=== PATIENT | male | born 1950 | race African-American/Black ===

== ENCOUNTER 2016-08-19 16:52 | Emergency (ER) | payer MEDICARE, MEDICAID ==
[~2016-08-19] VITALS: Ht 175.3 cm; Wt 80.0 kg
[~2016-08-19 16:52] MED LIST: BUDE6HFA IH; CARV3.1242 PO; DEXL60CA3 PO; FURO20TA4 PO; GABA-531 PO; HYDR-3933 PO; VIAMIN PO
[2016-08-19] MEDS ORDERED: MORPHINE SULFATE 10 MG/ML CPJ IM ONE (18:45)
[2016-08-19 18:59] VITALS: BP 132/93
== END 2016-08-19 23:15 | disposition home or self-care (01) ==
LOC: ER 17:18
DX: S20.219A Contusion of unspecified front wall of thorax, initial encounter (principal); S40.012A Contusion of left shoulder, initial encounter; S40.011A Contusion of right shoulder, initial encounter; M54.5 Low back pain; M25.561 Pain in right knee; M54.2 Cervicalgia; M25.551 Pain in right hip; M25.552 Pain in left hip; R51 Headache; J45.909 Unspecified asthma, uncomplicated; I10 Essential (primary) hypertension; F12.10 Cannabis abuse, uncomplicated; Z79.899 Other long term (current) drug therapy; Z88.0 Allergy status to penicillin; Z88.5 Allergy status to narcotic agent; V49.9XXA Car occupant (driver) (passenger) injured in unspecified traffic accident, initial encounter; Y93.89 Activity, other specified; Y99.8 Other external cause status; Y92.89 Other specified places as the place of occurrence of the external cause
CPT/HCPCS: 70450; 71010; 72100; 72125; 72220; 73030; 73522; 73552; 73562; 73590; 73630; 96372; 99284; J2270

== ENCOUNTER 2018-08-26 15:28 | Inpatient (IN) | payer MEDICARE, MEDICAID ==
[~2018-08-26] VITALS: Ht 185.4 cm; Wt 101.6 kg
[2018-08-26] MEDS ORDERED: METHYLPREDNISOLONE SOD SUCC 125 MG/2 ML VIAL IV STA (15:52)
[2018-08-26] MEDS ORDERED: IPRATROPIUM BROMIDE (0.02%) 0.5MG/2.5ML NEB HHN STA (15:52)
[2018-08-26] MEDS ORDERED: ALBUTEROL (0.083%) 2.5MG/3ML NEB HHN STA (15:52)
[2018-08-26] MEDS ORDERED: FUROSEMIDE 40MG/4ML VIAL IV ONE (16:00)
[2018-08-26] MEDS ORDERED: NITROGLYCERIN OINT 1GM/INCH UDPKT TD ONE (16:00)
[2018-08-26 16:08] LABS: BASOPHILS % 0.4 % (0.0-2.0); EOSINOPHILS % 3.4 % (0.0-5.0); HEMATOCRIT. 41.5 % (42.0-52.0); HEMOGLOBIN. 14.2 g/dL (14.0-18.0); LYMPHOCYTES % 18.5 % (20.0-50.0); MEAN CORPUSCULAR HEMOGLOBIN 32.5 pg (28.0-32.0); MEAN CORPUSCULAR VOLUME 94.8 fL (80.0-94.0); MEAN PLATELET VOLUME 9.3 fl (7.4-10.4); MONOCYTES % 11.5 % (2.0-8.0); NEUTROPHILS % 66.2 % (40.0-76.0); PLATELET 90 x1000/uL (130-400); RED BLOOD CELL COUNT 4.37 mill/uL (4.7-6.1)
[2018-08-26 16:12] LABS: CHLORIDE 109 mEq/L (98-107)
[2018-08-26 16:18] LABS: D-DIMER 0.55 mg/L FEU (<0.50); INR 1.1; PARTIAL THROMBOPLASTIN TIME 27.2 sec (23.4-31.0); PROTHROMBIN TIME 11.2 sec (9.6-11.0)
[2018-08-26] MEDS ORDERED: SODIUM CHLORIDE 0.9% 500 ML IV ONE (17:09)
[2018-08-26] MEDS ORDERED: FUROSEMIDE 20MG/2ML VIAL IVP ONE (18:00)
[2018-08-26 21:45] VITALS: BP 126/73
[2018-08-26] MEDS ORDERED: CHOL100053 PO (23:07)
[2018-08-26 23:08] VITALS: BP 126/73
[2018-08-27] VITALS: BP 113/70
[2018-08-27] MEDS ORDERED: ENOXAPARIN 40MG/0.4ML SYR SUBCUT SCH (00:30)
[2018-08-27] MEDS ORDERED: MAGNESIUM/ALUMINUM HYDROXIDE/SIMETHICONE 30ML UDC PO PRN (00:30)
[2018-08-27] MEDS ORDERED: CLONIDINE 0.1MG TABLET PO PRN (00:30)
[2018-08-27] MEDS ORDERED: ONDANSETRON HCL 4MG/2ML INJ IV PRN (00:30)
[2018-08-27] MEDS ORDERED: ACETAMINOPHEN 325MG TABLET PO PRN (00:30)
[2018-08-27] MEDS ORDERED: DEXTROSE 50% WATER 50ML SYRINGE IV PRN (00:45)
[2018-08-27] MEDS: METHYLPREDNISOLONE SOD SUCC 40 MG/ML VIAL IV SCH ×3 (03:05→18:07)
[2018-08-27] MEDS: IPRATROPIUM/ALBUTEROL 0.5-3(2.5)MG/3ML NEB INH PRN ×2 (04:47→13:56)
[2018-08-27 06:46] LABS: CLARITY URINE CLEAR (CLEAR); COLOR URINE YELLOW (YELLOW); KETONES URINE TRACE (NEGATIVE); LEUKOCYTE ESTERASE URINE NEGATIVE (NEGATIVE); NITRITE URINE NEGATIVE (NEGATIVE); OCCULT BLOOD URINE NEGATIVE (NEGATIVE); PH URINE 5.5 (4.5-8.0); PROTEIN URINE NEGATIVE (NEGATIVE); SPECIFIC GRAVITY URINE 1.026 (1.005-1.030); UROBILINOGEN URINE 0.2 E.U./dL (0.2-1.0)
[2018-08-27 06:59] LABS: *AMPHETAMINES SCREEN URINE NEGATIVE (NEGATIVE); CANNABINOID URINE SCREEN NEGATIVE (NEGATIVE); METHADONE URINE SCREEN NEGATIVE (NEGATIVE); OPIATES URINE SCREEN NEGATIVE (NEGATIVE); PHENCYCLIDINE URINE SCREEN NEGATIVE (NEGATIVE)
[2018-08-27 07:00] LABS: *BARBITURATES SCREEN URINE NEGATIVE (NEGATIVE); *BENZODIAZEPINES SCREEN URINE NEGATIVE (NEGATIVE); *COCAINE SCREEN URINE NEGATIVE (NEGATIVE)
[2018-08-27] MEDS: BLOOD SUGAR DIAGNOSTIC STRIP TEST SCH ×4 (07:00→21:24)
[2018-08-27] MEDS: INSULIN LISPRO 100 UNITS/ML SUBCUT SCH ×4 (07:00→21:00)
[2018-08-27 08:00] VITALS: BP 107/74
[2018-08-27 08:15] LABS: CHLORIDE 106 mEq/L (98-107)
[2018-08-27 08:40] LABS: CREATINE KINASE 213 IU/L (39-308)
[2018-08-27] MEDS: ASPIRIN 81MG EC TABLET PO SCH (09:00)
[2018-08-27 09:14] LABS: CREATINE KINASE MB FRACTION 2.3 ng/mL (0.5-3.6)
[2018-08-27 12:00] VITALS: BP 120/72
[2018-08-27] MEDS ORDERED: CARVEDILOL 3.125 MG TABLET PO SCH (14:30)
[2018-08-27] MEDS ORDERED: FUROSEMIDE 20MG/2ML VIAL IVP SCH (14:30)
[2018-08-27] MEDS ORDERED: REGADENOSON 0.4 MG/5 ML IV NR (15:00)
[2018-08-27] MEDS: PANTOPRAZOLE 40MG DR TABLET PO SCH (15:14)
[2018-08-27 16:00] VITALS: BP 118/70
[2018-08-27 16:24] LABS: CREATINE KINASE 272 IU/L (39-308)
[2018-08-27 16:25] LABS: CREATINE KINASE MB FRACTION 2.9 ng/mL (0.5-3.6)
[2018-08-27] MEDS: DOCUSATE SODIUM 100MG CAPSULE PO PRN (18:07)
[2018-08-27 20:00] VITALS: BP 120/73
[2018-08-27] MEDS: METOPROLOL TARTRATE 25MG TABLET PO SCH (21:32)
[2018-08-27] MEDS: HYDROCODONE/ACETAMINOPHEN 5/325MG TABLET PO PRN (21:33)
[2018-08-27] MEDS: GABAPENTIN 300MG CAPSULE PO SCH (21:33)
[2018-08-27] MEDS: IPRATROPIUM/ALBUTEROL 0.5-3(2.5)MG/3ML NEB HHN SCH (21:35)
[2018-08-28] VITALS: BP 119/72
[2018-08-28] MEDS: IPRATROPIUM/ALBUTEROL 0.5-3(2.5)MG/3ML NEB HHN SCH ×4 (01:08→20:52)
[2018-08-28] MEDS: METHYLPREDNISOLONE SOD SUCC 40 MG/ML VIAL IV SCH ×3 (02:04→16:50)
[2018-08-28 04:00] VITALS: BP 122/73
[2018-08-28] MEDS: BLOOD SUGAR DIAGNOSTIC STRIP TEST SCH ×4 (06:13→21:01)
[2018-08-28] MEDS: INSULIN LISPRO 100 UNITS/ML SUBCUT SCH ×4 (06:29→21:02)
[2018-08-28 06:56] LABS: HEMATOCRIT. 39.9 % (42.0-52.0); HEMOGLOBIN. 13.5 g/dL (14.0-18.0); MEAN CORPUSCULAR HEMOGLOBIN 32.6 pg (28.0-32.0); MEAN CORPUSCULAR VOLUME 95.9 fL (80.0-94.0); MEAN PLATELET VOLUME 9.6 fl (7.4-10.4); PLATELET 94 x1000/uL (130-400); RED BLOOD CELL COUNT 4.16 mill/uL (4.7-6.1); RED CELL DISTRIBUTION WIDTH 14.4 % (11.6-14.6)
[2018-08-28 08:00] VITALS: BP 107/64
[2018-08-28] MEDS: ASPIRIN 81MG EC TABLET PO SCH (08:37)
[2018-08-28] MEDS: METOPROLOL TARTRATE 25MG TABLET PO SCH ×2 (08:37→21:00)
[2018-08-28] MEDS: PANTOPRAZOLE 40MG DR TABLET PO SCH (08:50)
[2018-08-28] MEDS ORDERED: REGADENOSON 0.4 MG/5 ML IV ONE (09:41)
[2018-08-28 12:00] VITALS: BP 114/69
[2018-08-28 13:12] LABS: PLATELET ESTIMATE SLIGHTLY DECREASED
[2018-08-28 16:00] VITALS: BP 111/65
[2018-08-28] MEDS ORDERED: TERBUTALINE SULFATE 1MG/ML VIAL SUBCUT NR (16:00)
[2018-08-28 20:00] VITALS: BP 108/72
[2018-08-28] MEDS: GABAPENTIN 300MG CAPSULE PO SCH (21:00)
[2018-08-28] MEDS: GUAIFENESIN 600MG ER TABLET PO SCH (21:00)
[2018-08-28] MEDS: DOCUSATE SODIUM 100MG CAPSULE PO PRN (21:18)
[2018-08-28] MEDS: HYDROCODONE/ACETAMINOPHEN 5/325MG TABLET PO PRN (21:21)
[2018-08-29] VITALS: BP 104/66
[2018-08-29] MEDS: IPRATROPIUM/ALBUTEROL 0.5-3(2.5)MG/3ML NEB HHN SCH ×4 (01:38→21:32)
[2018-08-29] MEDS: METHYLPREDNISOLONE SOD SUCC 40 MG/ML VIAL IV SCH ×3 (02:55→17:15)
[2018-08-29 04:00] VITALS: BP 106/70
[2018-08-29 05:53] LABS: HEMATOCRIT. 39.7 % (42.0-52.0); HEMOGLOBIN. 13.4 g/dL (14.0-18.0); LYMPHOCYTES % 10.5 % (20.0-50.0); MEAN CORPUSCULAR HEMOGLOBIN 32.3 pg (28.0-32.0); MEAN CORPUSCULAR VOLUME 95.6 fL (80.0-94.0); MEAN PLATELET VOLUME 9.5 fl (7.4-10.4); NEUTROPHILS % 84.5 % (40.0-76.0); PLATELET 82 x1000/uL (130-400); RED BLOOD CELL COUNT 4.15 mill/uL (4.7-6.1); RED CELL DISTRIBUTION WIDTH 14.6 % (11.6-14.6)
[2018-08-29 06:17] LABS: CHLORIDE 107 mEq/L (98-107)
[2018-08-29] MEDS: BLOOD SUGAR DIAGNOSTIC STRIP TEST SCH ×4 (06:41→20:39)
[2018-08-29] MEDS: PANTOPRAZOLE 40MG DR TABLET PO SCH (06:41)
[2018-08-29 08:00] VITALS: BP 108/73
[2018-08-29] MEDS: DOCUSATE SODIUM 100MG CAPSULE PO PRN ×2 (08:10→20:26)
[2018-08-29] MEDS: GUAIFENESIN 600MG ER TABLET PO SCH ×2 (08:10→20:26)
[2018-08-29] MEDS: METOPROLOL TARTRATE 25MG TABLET PO SCH ×2 (08:10→20:26)
[2018-08-29] MEDS: ASPIRIN 81MG EC TABLET PO SCH (08:11)
[2018-08-29] MEDS: INSULIN LISPRO 100 UNITS/ML SUBCUT SCH ×4 (08:19→20:38)
[2018-08-29 12:00] VITALS: BP 115/74
[2018-08-29] MEDS ORDERED: NA PHOS,M-B/NA PHOS,DI-BA ENEMA 118ML PR PRN (12:30)
[2018-08-29] MEDS ORDERED: LACTULOSE 20G/30ML UDC PO SCH (12:30)
[2018-08-29 16:00] VITALS: BP 112/69
[2018-08-29 16:55] LABS: CREATINE KINASE MB FRACTION 1.8 ng/mL (0.5-3.6)
[2018-08-29 20:00] VITALS: BP 117/76
[2018-08-29] MEDS: GABAPENTIN 300MG CAPSULE PO SCH (20:26)
[2018-08-29] MEDS: HYDROCODONE/ACETAMINOPHEN 5/325MG TABLET PO PRN (23:59)
[2018-08-30] VITALS: BP 122/73
[2018-08-30] MEDS: METHYLPREDNISOLONE SOD SUCC 40 MG/ML VIAL IV SCH ×2 (02:48→09:01)
[2018-08-30] MEDS: IPRATROPIUM/ALBUTEROL 0.5-3(2.5)MG/3ML NEB HHN SCH ×4 (03:01→20:27)
[2018-08-30 04:00] VITALS: BP 118/70
[2018-08-30] MEDS: PANTOPRAZOLE 40MG DR TABLET PO SCH (06:29)
[2018-08-30] MEDS: BLOOD SUGAR DIAGNOSTIC STRIP TEST SCH ×4 (06:29→20:18)
[2018-08-30] MEDS: INSULIN LISPRO 100 UNITS/ML SUBCUT SCH ×4 (07:40→20:37)
[2018-08-30 08:00] VITALS: BP 104/69
[2018-08-30] MEDS: GUAIFENESIN 600MG ER TABLET PO SCH ×2 (08:56→20:27)
[2018-08-30] MEDS: ASPIRIN 81MG EC TABLET PO SCH (08:58)
[2018-08-30] MEDS: METOPROLOL TARTRATE 25MG TABLET PO SCH ×2 (08:59→20:27)
[2018-08-30 12:00] VITALS: BP 104/59
[2018-08-30] MEDS ORDERED: IPRATROPIUM/ALBUTEROL 0.5-3(2.5)MG/3ML NEB HHN PRN (15:00)
[2018-08-30 16:00] VITALS: BP 105/70
[2018-08-30] MEDS: PREDNISONE 20MG TABLET PO SCH (18:32)
[2018-08-30 20:00] VITALS: BP 114/72
[2018-08-30] MEDS: GABAPENTIN 300MG CAPSULE PO SCH (20:27)
[2018-08-31] VITALS (7 sets, daily range): BP systolic 102–126; BP diastolic 60–88
[2018-08-31] MEDS: IPRATROPIUM/ALBUTEROL 0.5-3(2.5)MG/3ML NEB HHN SCH ×6 (00:24→21:02)
[2018-08-31] MEDS: ACETYLCYSTEINE 100MG/ML 10% VIAL 4ML INH SCH ×2 (00:25→15:54)
[2018-08-31] MEDS: PANTOPRAZOLE 40MG DR TABLET PO SCH (06:25)
[2018-08-31] MEDS: BLOOD SUGAR DIAGNOSTIC STRIP TEST SCH ×4 (06:28→21:00)
[2018-08-31] MEDS: DOCUSATE SODIUM 100MG CAPSULE PO PRN (06:30)
[2018-08-31] MEDS: INSULIN LISPRO 100 UNITS/ML SUBCUT SCH ×4 (06:31→21:00)
[2018-08-31] MEDS: PREDNISONE 20MG TABLET PO SCH ×2 (08:57→17:08)
[2018-08-31] MEDS: GUAIFENESIN 600MG ER TABLET PO SCH ×2 (08:58→21:09)
[2018-08-31] MEDS: ASPIRIN 81MG EC TABLET PO SCH (08:58)
[2018-08-31] MEDS: METOPROLOL TARTRATE 25MG TABLET PO SCH ×2 (09:00→21:00)
[2018-08-31] MEDS: HYDROCODONE/ACETAMINOPHEN 5/325MG TABLET PO PRN (09:10)
[2018-08-31] MEDS ORDERED: GUAIFENESIN 200MG/10ML SUGAR FREE UDC PO PRN (11:15)
[2018-08-31 12:55] LABS: BG BASE EXCESS -0.6 mmol/L (-2.0-2.0); BG CARBOXYHEMOGLOBIN 0.7 % (0.5-1.5); BG DEOXYHEMOGLOBIN 5.2 % (0.0-5.0); BG FRACTION INSPIRED OXYGEN 21; BG HCO3 ACT 22.7 mmol/L (22.0-26.0); BG METHEMOGLOBIN 0.3 % (0.0-1.5); BG OXYGEN SATURATION 94.7 % (92.0-98.5); BG OXYHEMOGLOBIN 93.8 % (94.0-97.0); BG PCO2 33.6 mmHg (35.0-45.0); BG PH 7.447 (7.350-7.450); BG PO2 77.6 mmHg (75.0-100.0); BG SAMPLE SITE RIGHT RADIAL; BG TOTAL HEMOGLOBIN 15.3 g/dL (12.0-18.0); BG VENT MODE ROOM AIR
[2018-08-31] MEDS ORDERED: BENZONATATE 100MG CAPSULE PO PRN (15:00)
[2018-08-31] MEDS: GABAPENTIN 300MG CAPSULE PO SCH (21:09)
== END 2018-08-31 21:30 | disposition home or self-care (01) | DRG 193 ==
LOC: ER 15:48 → 5WST 17:49 → ENRESERV 20:34 → 8WST 08-27 20:15
PROVIDERS: ADMIT Internal Medicine; ATTEND Internal Medicine
DX: J18.9 Pneumonia, unspecified organism (principal); J96.00 Acute respiratory failure, unspecified whether with hypoxia or hypercapnia; J44.1 Chronic obstructive pulmonary disease with (acute) exacerbation; J44.0 Chronic obstructive pulmonary disease with (acute) lower respiratory infection; I25.2 Old myocardial infarction; Z98.61 Coronary angioplasty status; G89.29 Other chronic pain; M54.30 Sciatica, unspecified side; F17.200 Nicotine dependence, unspecified, uncomplicated; I10 Essential (primary) hypertension; R79.89 Other specified abnormal findings of blood chemistry; E11.65 Type 2 diabetes mellitus with hyperglycemia; M54.9 Dorsalgia, unspecified; K59.00 Constipation, unspecified; I25.119 Atherosclerotic heart disease of native coronary artery with unspecified angina pectoris; R07.89 Other chest pain; Z88.0 Allergy status to penicillin; Z88.6 Allergy status to analgesic agent; Z86.73 Personal history of transient ischemic attack (TIA), and cerebral infarction without residual deficits; Z92.21 Personal history of antineoplastic chemotherapy; Z85.05 Personal history of malignant neoplasm of liver; Z91.041 Radiographic dye allergy status; Z79.1 Long term (current) use of non-steroidal anti-inflammatories (NSAID); Z79.899 Other long term (current) drug therapy
CPT/HCPCS: 36415; 36600; 71045; 78452; 78582; 80048; 80061; 80305; 82375; 82550; 82553; 82805; 82962; 83036; 83735; 83880; 84443; 84484; 85379; 87070; 93005; 93017; 93306; 93970; 94618; 94640; 94644; 96374; 97162; 99285; A9500; A9558; J1815; J1940; J2785; J2920; J2930; J3105; J7040; J7512; J7608; J7611; J7620

== ENCOUNTER 2018-09-03 00:07 | Emergency (ER) | payer MEDICARE, MEDICAID ==
[~2018-09-03] VITALS: Ht 185.4 cm; Wt 72.0 kg
[~2018-09-03 00:07] MED LIST changes: -CARV3.1242 PO; +CHOL100053 PO; -VIAMIN PO
[2018-09-03] MEDS ORDERED: ALBUTEROL (0.083%) 2.5MG/3ML NEB HHN STA (02:51)
[2018-09-03] MEDS ORDERED: IPRATROPIUM BROMIDE (0.02%) 0.5MG/2.5ML NEB HHN STA (02:51)
[2018-09-03 05:46] VITALS: BP 118/70
== END 2018-09-03 05:48 | disposition home or self-care (01) ==
LOC: ER 00:07
DX: J44.1 Chronic obstructive pulmonary disease with (acute) exacerbation (principal); I10 Essential (primary) hypertension; I25.2 Old myocardial infarction; I25.10 Atherosclerotic heart disease of native coronary artery without angina pectoris; Z88.0 Allergy status to penicillin; Z88.6 Allergy status to analgesic agent; Z88.5 Allergy status to narcotic agent; Z88.8 Allergy status to other drugs, medicaments and biological substances; Z79.899 Other long term (current) drug therapy; Z86.73 Personal history of transient ischemic attack (TIA), and cerebral infarction without residual deficits
CPT/HCPCS: 93005; 94640; 99283; J7611